=== PATIENT | male | born 1960 | race Two or more races ===

== ENCOUNTER 2023-02-23 10:29 | Inpatient (IN) | payer SELFPAY ==
[~2023-02-23] VITALS: Ht 200.7 cm; Wt 118.0 kg
[2023-02-23 11:42] LABS: Eosinophils # (auto) 0 10 ^3/uL (0-0.8); Hemoglobin 9.6 g/dL (13.5-17.5); Lymphocytes % (auto) 5.4 % (10.0-50.0); Monocytes # (auto) 0.6 10 ^3/uL (0-1.3); Neutrophils # (auto) 10.7 10 ^3/uL (1.6-8.6); Red Cell Distribution Width 16.5 % (11.8-14.3)
[2023-02-23 11:45] LABS: Basophils # (auto) 0 10 ^3/uL (0-0.2); Basophils % (auto) 0.3 % (0.0-2.0); Eosinophils % (auto) 0.1 % (0.0-7.0); Hematocrit 28.4 % (41.0-53.0); Lymphocytes # (auto) 0.7 10 ^3/uL (0.4-5.4); Mean Corpuscular Hgb Conc. 33.7 g/dL (32.0-36.0); Mean Corpuscular Volume 106.6 fL (80.0-100.0); Monocytes % (auto) 4.7 % (0.0-12.0); Neutrophils % (auto) 89.5 % (37.0-80.0); Red Blood Cells 2.66 10^6/uL (4.5-5.90)
[2023-02-23 11:58] LABS: INR 1.23 (0.9-1.15); Partial Thromboplastin Time 27.5 SEC (24.5-34.5); Prothrombin Time 12.7 sec (9.3-11.8)
[2023-02-23 12:02] LABS: Alanine Aminotransferase 47 U/L (7-40); Albumin 2.9 g/dL (3.2-4.8); Alkaline Phosphatase 503 U/L (46-116); Anion Gap 13 (5-15); Aspartate Aminotransferase 131 U/L (13-40); BUN/Creatinine Ratio 11.1 (10.0-20.0); Blood Urea Nitrogen 6 mg/dL (9-23); Calcium 7.1 mg/dL (8.7-10.4); Carbon Dioxide 21 mmol/L (20-30); Chloride 107 mmol/L (98-107); Glucose 93 mg/dL (74-106); Magnesium 1.3 mg/dL (1.6-2.6); Potassium 3.1 mmol/L (3.5-5.1); Sodium 141 mmol/L (136-145)
[2023-02-23 12:03] LABS: Bilirubin, Total 2.3 mg/dL (0.2-1.0); Total Protein 5.3 g/dL (5.7-8.2)
[2023-02-23 12:07] LABS: Blood Alcohol 273.8 mg/dL (<10)
[2023-02-23 12:08] LABS: Urine Bacteria NONE SEEN /hpf (None Seen); Urine Blood TRACE /uL (Negative); Urine Clarity Clear (Clear); Urine Color Yellow (Yellow); Urine Mucus FEW (None Seen); Urine Protein, UAD TRACE (Negative); Urine Specific Gravity 1.017 (1.001-1.035); Urine WBC 3 /hpf (0 - 3)
[2023-02-23] MEDS ORDERED: POTASSIUM EFFERVESENT TAB 25 MEQ PO ONE ×2 (12:30→15:00)
[2023-02-23] MEDS ORDERED: THIAMINE 100mg/ml INJ (200mg/2ml VIAL) IV ONE (12:30)
[2023-02-23] MEDS ORDERED: metroNIDAZOLE 500MG/100ML 100 ML IV ONE (12:45)
[2023-02-23] MEDS ORDERED: CIPROFLOXACIN 400MG/200ML 200 ML IV ONE (12:45)
[2023-02-23 14:45] VITALS: PULSE 109; RESP 18; O2SAT 99
[2023-02-23] MEDS ORDERED: ONDANSETRON HCL 4 MG/2 ML VIAL IV PRN (15:00)
[2023-02-23] MEDS ORDERED: MORPHINE SULFATE INJ 2 MG/ml SYRG IV PRN (15:00)
[2023-02-23] MEDS ORDERED: LORazepam 2MG/ML-1ML VIAL IV PRN (15:00)
[2023-02-23] MEDS ORDERED: DOCUSATE SOD 100 MG CAP PO PRN (15:00)
[2023-02-23] MEDS ORDERED: MAGNESIUM SULFATE 1GM/100ML 100 ML IV SCH (15:00)
[2023-02-23] MEDS ORDERED: IOHEXOL 350 MG/ML 100ML IJ ONE (15:30)
[2023-02-23] MEDS: chlordiazePOXIDE HCL 25 MG CAP PO SCH (15:53)
[2023-02-23] MEDS: MAGNESIUM SULFATE 1GM/100ML 100 ML IV SCH ×2 (15:54→15:58)
[2023-02-23 16:14] LABS: INR 1.07 (0.9-1.15); Prothrombin Time 11.2 sec (9.3-11.8)
[2023-02-23] MEDS ORDERED: FOLIC ACID 1 MG, MULTIPLE VITAMIN 10 ML, THIAMINE INJ 100 MG in SODIUM CHLORIDE 0.9% 1,... INJ SCH (18:00)
[2023-02-23 18:02] VITALS: PULSE 105; RESP 18; O2SAT 98
[2023-02-23 18:26] VITALS: BP 115/67; PULSE 105; RESP 18; TEMP 97.8; O2SAT 98
[2023-02-23 20:00] VITALS: PULSE 116; PULSE 118; RESP 16; O2SAT 95
[2023-02-23] MEDS: ENOXAPARIN SOD 120 MG/0.8 ML SYRINGE SC SCH (21:33)
[2023-02-23 22:00] VITALS: BP 146/83; PULSE 118; RESP 16; TEMP 97.8; O2SAT 95
[2023-02-23] MEDS: PIPERACILLIN-TAZOB 3.375GM 100 ML IV SCH (23:49)
[2023-02-24] VITALS (7 sets, daily range): BP systolic 136–145; BP diastolic 87–108; PULSE 88–117; RESP 19–22; TEMP 97.4–98.4; O2SAT 93–98
[2023-02-24] MEDS: LACTULOSE 20Gm/30ML SOLN PO SCH ×4 (00:05→22:19)
[2023-02-24] MEDS: chlordiazePOXIDE HCL 25 MG CAP PO SCH ×4 (01:09→22:20)
[2023-02-24] MEDS: PIPERACILLIN-TAZOB 3.375GM 100 ML IV SCH ×2 (05:51→13:22)
[2023-02-24 06:28] LABS: Basophils # (auto) 0.1 10 ^3/uL (0-0.2); Basophils % (auto) 0.9 % (0.0-2.0); Eosinophils # (auto) 0 10 ^3/uL (0-0.8); Lymphocytes # (auto) 0.8 10 ^3/uL (0.4-5.4); Monocytes # (auto) 0.5 10 ^3/uL (0-1.3)
[2023-02-24 06:30] LABS: Eosinophils % (auto) 0.5 % (0.0-7.0); Hematocrit 26.6 % (41.0-53.0); Lymphocytes % (auto) 10.7 % (10.0-50.0); Mean Corpuscular Hemoglobin 36.1 pg (28.0-32.0); Mean Corpuscular Hgb Conc. 33.7 g/dL (32.0-36.0); Mean Corpuscular Volume 107.1 fL (80.0-100.0); Monocytes % (auto) 6.5 % (0.0-12.0); Neutrophils # (auto) 5.9 10 ^3/uL (1.6-8.6); Neutrophils % (auto) 81.4 % (37.0-80.0); Red Blood Cells 2.49 10^6/uL (4.5-5.90); Red Cell Distribution Width 16.5 % (11.8-14.3); White Blood Cell 7.2 10^3/uL (4.4-10.8)
[2023-02-24 06:44] LABS: Alanine Aminotransferase 37 U/L (7-40); Albumin 2.6 g/dL (3.2-4.8); Alkaline Phosphatase 446 U/L (46-116); Anion Gap 9 (5-15); Aspartate Aminotransferase 102 U/L (13-40); Bilirubin, Total 3.1 mg/dL (0.2-1.0); Blood Alcohol < 3.0 mg/dL (<10); Calcium 6.8 mg/dL (8.7-10.4); Carbon Dioxide 24 mmol/L (20-30); Chloride 106 mmol/L (98-107); Glucose 97 mg/dL (74-106); Magnesium 1.4 mg/dL (1.6-2.6); Potassium 2.9 mmol/L (3.5-5.1); Sodium 139 mmol/L (136-145); Total Protein 4.9 g/dL (5.7-8.2)
[2023-02-24 06:49] LABS: BUN/Creatinine Ratio 11.1 (10.0-20.0); Blood Urea Nitrogen < 5 mg/dL (9-23)
[2023-02-24] MEDS ORDERED: IOHEXOL 350 MG/ML 100ML IJ ONE (07:51)
[2023-02-24 09:35] LABS: Hepatitis B Surface Antigen Negative (Negative)
[2023-02-24] MEDS ORDERED: PANTOPRAZOLE 40 MG/10 ML VIAL INJ IV SCH (10:00)
[2023-02-24] MEDS: FUROSEMIDE 40 MG/4 ML VIAL IV SCH (10:36)
[2023-02-24] MEDS: POTASSIUM CHL 20 Meq TABLET PO SCH ×3 (10:37→17:16)
[2023-02-24] MEDS: ENOXAPARIN SOD 120 MG/0.8 ML SYRINGE SC SCH (10:37)
[2023-02-24] MEDS: MAGNESIUM OXIDE 400 MG TAB PO SCH (10:37)
[2023-02-24] MEDS: SPIRONOLACTONE 25 MG TAB PO SCH (10:39)
[2023-02-24 11:42] LABS: Hepatitis C Antibody Reactive (Negative)
[2023-02-24] MEDS ORDERED: POTASSIUM CHL 20 Meq TABLET PO SCH (13:20)
[2023-02-24] MEDS ORDERED: CYANOCOBALAMIN 500 MCG TAB PO ONE (16:00)
[2023-02-24] MEDS ORDERED: THIAMINE HCL 100 MG TAB PO ONE (16:00)
[2023-02-24] MEDS ORDERED: MULTIPLE VITAMIN TAB PO ONE (16:00)
[2023-02-24] MEDS ORDERED: FOLIC ACID 1 MG TAB PO ONE (16:00)
[2023-02-24 18:43] LABS: % Iron Saturation 64.7 % (20-55)
[2023-02-24] MEDS ORDERED: CEFP200T15 PO (20:55)
[2023-02-24] MEDS ORDERED: METR-344 PO (20:55)
[2023-02-24] MEDS ORDERED: BISO5TAB44 PO (20:55)
[2023-02-24] MEDS ORDERED: HYDROcodone-ACET 5/325MG TAB PO ONE (22:15)
[2023-02-24] MEDS: metroNIDAZOLE 500 MG TAB PO SCH (22:19)
[2023-02-24] MEDS: FLORASTOR (S. BOULARDII) 250 MG CAP PO SCH (22:20)
[2023-02-25 05:00] VITALS: BP 126/84; PULSE 102; RESP 21; TEMP 98.6; O2SAT 93
[2023-02-25] MEDS: metroNIDAZOLE 500 MG TAB PO SCH (05:48)
[2023-02-25 06:34] LABS: Basophils # (auto) 0 10 ^3/uL (0-0.2); Eosinophils # (auto) 0.2 10 ^3/uL (0-0.8); Hemoglobin 8.7 g/dL (13.5-17.5); Lymphocytes # (auto) 0.5 10 ^3/uL (0.4-5.4); Mean Corpuscular Volume 106.8 fL (80.0-100.0); Monocytes # (auto) 0.2 10 ^3/uL (0-1.3); Neutrophils # (auto) 2.4 10 ^3/uL (1.6-8.6); White Blood Cell 3.4 10^3/uL (4.4-10.8)
[2023-02-25 06:38] LABS: Eosinophils % (auto) 5.1 % (0.0-7.0); Hematocrit 26.1 % (41.0-53.0); Lymphocytes % (auto) 15.8 % (10.0-50.0); Mean Corpuscular Hemoglobin 35.7 pg (28.0-32.0); Mean Corpuscular Hgb Conc. 33.4 g/dL (32.0-36.0); Monocytes % (auto) 7.2 % (0.0-12.0); Neutrophils % (auto) 70.9 % (37.0-80.0); Nucleated Red Blood Cells % 0.2 %; Red Blood Cells 2.45 10^6/uL (4.5-5.90)
[2023-02-25 06:41] LABS: Alanine Aminotransferase 32 U/L (7-40); Albumin 2.5 g/dL (3.2-4.8); Alkaline Phosphatase 399 U/L (46-116); Anion Gap 8 (5-15); Aspartate Aminotransferase 74 U/L (13-40); Calcium 7.1 mg/dL (8.7-10.4); Carbon Dioxide 25 mmol/L (20-30); Chloride 107 mmol/L (98-107); Glucose 94 mg/dL (74-106); Magnesium 1.4 mg/dL (1.6-2.6); Potassium 2.8 mmol/L (3.5-5.1); Sodium 140 mmol/L (136-145)
[2023-02-25 06:42] LABS: Bilirubin, Total 2.2 mg/dL (0.2-1.0); Total Protein 4.8 g/dL (5.7-8.2)
[2023-02-25 06:50] LABS: BUN/Creatinine Ratio 10.9 (10.0-20.0); Blood Urea Nitrogen < 5 mg/dL (9-23)
[2023-02-25 08:00] VITALS: PULSE 99; O2SAT 95
[2023-02-25] MEDS: MAGNESIUM SULFATE 1GM/100ML 100 ML IV SCH ×2 (08:37→09:00)
[2023-02-25] MEDS: POTASSIUM CHL 20MEQ/100ML 100 ML IV SCH ×2 (08:37→11:45)
[2023-02-25 08:45] VITALS: BP 140/99; PULSE 103; RESP 21; TEMP 97.7; O2SAT 97
[2023-02-25] MEDS ORDERED: levoFLOXacin 250 MG TAB PO SCH (10:00)
[2023-02-25] MEDS ORDERED: PANTOPRAZOLE 40 MG TAB PO SCH (10:00)
[2023-02-25] MEDS ORDERED: CYANOCOBALAMIN 500 MCG TAB PO SCH (10:00)
[2023-02-25] MEDS ORDERED: chlordiazePOXIDE HCL 25 MG CAP PO SCH (10:00)
[2023-02-25] MEDS ORDERED: FOLIC ACID 1 MG TAB PO SCH (10:00)
[2023-02-25] MEDS ORDERED: MULTIPLE VITAMIN TAB PO SCH (10:00)
[2023-02-25] MEDS ORDERED: THIAMINE HCL 100 MG TAB PO SCH (10:00)
[2023-02-25] MEDS: MAGNESIUM OXIDE 400 MG TAB PO SCH (10:26)
[2023-02-25] MEDS: LACTULOSE 20Gm/30ML SOLN PO SCH (10:26)
[2023-02-25] MEDS: POTASSIUM CHL 20 Meq TABLET PO SCH (10:27)
[2023-02-25] MEDS: FLORASTOR (S. BOULARDII) 250 MG CAP PO SCH (10:28)
[2023-02-25] MEDS: SPIRONOLACTONE 25 MG TAB PO SCH (10:28)
[2023-02-25] MEDS: FUROSEMIDE 40 MG/4 ML VIAL IV SCH (10:29)
[2023-02-25 11:42] LABS: Basophils # (auto) 0 10 ^3/uL (0-0.2); Eosinophils # (auto) 0.1 10 ^3/uL (0-0.8); Hemoglobin 7.9 g/dL (13.5-17.5); Lymphocytes # (auto) 0.4 10 ^3/uL (0.4-5.4); Mean Corpuscular Hemoglobin 35.8 pg (28.0-32.0); Mean Corpuscular Hgb Conc. 32.2 g/dL (32.0-36.0); Monocytes # (auto) 0.2 10 ^3/uL (0-1.3); White Blood Cell 2.8 10^3/uL (4.4-10.8)
[2023-02-25 11:44] LABS: Basophils % (auto) 1.1 % (0.0-2.0); Eosinophils % (auto) 4.2 % (0.0-7.0); Hematocrit 24.6 % (41.0-53.0); Lymphocytes % (auto) 14.7 % (10.0-50.0); Red Blood Cells 2.22 10^6/uL (4.5-5.90); Red Cell Distribution Width 16.5 % (11.8-14.3)
[2023-02-25 12:43] VITALS: BP 127/96; PULSE 105; RESP 18; TEMP 97.8; O2SAT 97
[2023-02-25 13:06] LABS: Anisocytosis Slight; Macrocytosis Marked
[2023-02-25 13:07] LABS: Platelet Estimate Adequate
[2023-02-25] MEDS ORDERED: POTASSIUM CHL 20 Meq TABLET PO ONE (13:15)
[2023-02-25] MEDS ORDERED: SPIRONOLACTONE 25 MG TAB PO SCH (22:00)
[2023-02-26] MEDS ORDERED: chlordiazePOXIDE HCL 25 MG CAP PO SCH (07:00)
== END 2023-02-25 14:00 | disposition left against medical advice (07) | DRG 602 ==
LOC: ER 10:29 → TELE 15:10 → TELE-EAST 17:56
PROVIDERS: ADMIT Internal Medicine; ATTEND Internal Medicine
DX: L03.116 Cellulitis of left lower limb (principal); J96.01 Acute respiratory failure with hypoxia; E44.1 Mild protein-calorie malnutrition; J90 Pleural effusion, not elsewhere classified; I48.20 Chronic atrial fibrillation, unspecified; L03.115 Cellulitis of right lower limb; E83.42 Hypomagnesemia; E87.6 Hypokalemia; F10.129 Alcohol abuse with intoxication, unspecified; K74.60 Unspecified cirrhosis of liver; K40.90 Unilateral inguinal hernia, without obstruction or gangrene, not specified as recurrent; M79.89 Other specified soft tissue disorders; B19.20 Unspecified viral hepatitis C without hepatic coma; K64.9 Unspecified hemorrhoids; K42.9 Umbilical hernia without obstruction or gangrene; Y90.8 Blood alcohol level of 240 mg/100 ml or more; D53.9 Nutritional anemia, unspecified; Z53.29 Procedure and treatment not carried out because of patient's decision for other reasons; Z82.49 Family history of ischemic heart disease and other diseases of the circulatory system; Z87.891 Personal history of nicotine dependence; Z68.29 Body mass index [BMI] 29.0-29.9, adult
CPT/HCPCS: 36415; 70450; 71045; 71275; 74176; 80053; 80320; 81001; 82140; 82607; 82728; 83010; 83540; 83550; 83615; 83735; 83880; 84100; 85025; 85045; 85379; 85610; 85730; 86803; 87081; 87340; 93005; 93306; 93970; 96365; 96368; 96375; 97110; 97116; 97163; 97530; C9113; G0378; J2543; J3480; J3490